=== PATIENT | male | born 1960 | race Caucasian/White ===

== ENCOUNTER 2019-04-28 02:59 | Emergency (ER) | payer OTHER ==
[~2019-04-28] VITALS: Ht 177.8 cm; Wt 148.2 kg
[2019-04-28 04:07] VITALS: BP 117/76
== END 2019-04-28 04:24 | disposition home or self-care (01) ==
LOC: ED 04:00
DX: T58.11XA Toxic effect of carbon monoxide from utility gas, accidental (unintentional), initial encounter (principal); V93.89XA Other injury due to other accident on board unspecified watercraft, initial encounter; Y93.89 Activity, other specified; Y92.89 Other specified places as the place of occurrence of the external cause; Y99.8 Other external cause status
CPT/HCPCS: 36415; 82375; 93005; 99284